=== PATIENT | female | born 1975 | race Caucasian/White ===

== ENCOUNTER 2022-01-14 08:50 | Emergency (ER) | payer OTHER ==
[~2022-01-14] VITALS: Ht 167.6 cm; Wt 104.5 kg
[~2022-01-14 08:50] MED LIST: LORTAB 5/500 501 TAB PO; NO HOME MEDICATIONS
[2022-01-14 09:09] VITALS: TEMP 98.6
[2022-01-14] MEDS ORDERED: FLAGYL500 MG PO (11:13)
[2022-01-14 11:33] VITALS: BP 118/82; PULSE 82
== END 2022-01-14 11:36 | disposition home or self-care (01) ==
LOC: COL.ER 08:50
DX: N76.0 Acute vaginitis (principal); N36.8 Other specified disorders of urethra; Z28.310 Unvaccinated for COVID-19

== ENCOUNTER 2022-05-04 08:10 | Emergency (ER) | payer OTHER ==
[~2022-05-04] VITALS: Ht 167.6 cm; Wt 104.5 kg
[~2022-05-04 08:10] MED LIST changes: +FLAGYL500 MG PO
[2022-05-04 08:24] VITALS: BP 135/84; PULSE 78; TEMP 97.9
== END 2022-05-04 09:30 | disposition home or self-care (01) ==
LOC: COL.ER 08:10
DX: T78.1XXA Other adverse food reactions, not elsewhere classified, initial encounter (principal); R06.2 Wheezing; R07.89 Other chest pain; Z28.310 Unvaccinated for COVID-19